=== PATIENT | female | born 1950 | race Caucasian/White ===

== ENCOUNTER 2017-07-19 06:23 | Emergency (ER) | payer MEDICARE, OTHER ==
[~2017-07-19] VITALS: Ht 165.1 cm; Wt 108.9 kg
--- NOTE | ~2017-07-19 | EKG ---
PATIENT: MARIO LIMON UNIT #: [id number] Ventricular Rate: 66 BPM Atrial Rate: 66 BPM P-R Interval: 160 ms QRS Duration: 82 ms Q-T Interval: 420 ms QTC Calculation(Bezet): 440 ms P [place]: 48 degrees Calculated R [place]: -12 degrees Calculated T [place]: -4 degrees Diagnosis Line: Normal sinus rhythm Diagnosis Line: Voltage criteria for left ventricular hypertrophy Diagnosis Line: Abnormal ECG Diagnosis Line: No previous ECGs available Diagnosis Line: Confirmed by JACKSON GARCIA MD ([id number]) on 07/20/2017 Diagnosis Line: 5:23:22 AM INTERPRETING MD: RADHA PARDO
--- NOTE | ~2017-07-19 | EKG ---
PATIENT: MARIO LIMON UNIT #: [id number] Ventricular Rate: 74 BPM Atrial Rate: 74 BPM P-R Interval: 152 ms QRS Duration: 76 ms Q-T Interval: 400 ms QTC Calculation(Bezet): 444 ms P [place]: 58 degrees Calculated R [place]: 14 degrees Calculated T [place]: 24 degrees Diagnosis Line: Normal sinus rhythm Diagnosis Line: Normal ECG Diagnosis Line: When compared with ECG of 19-JUL-2017 08:58, Diagnosis Line: (unconfirmed) Diagnosis Line: Nonspecific T wave abnormality has replaced Diagnosis Line: inverted T waves in Inferior leads Diagnosis Line: Confirmed by JACKSON GARCIA MD ([id number]) on 07/20/2017 Diagnosis Line: 5:25:57 AM INTERPRETING MD: RADHA PARDO
--- NOTE | ~2017-07-19 | CT52 ---
[facility] A Service of [facility] RADIOLOGY TEXT RESULTS PATIENT: MARIO LIMON LOCATION: [facility] : 54 UNIT #: [id number] AGE: [address]: Ange Carnes MD SEX: F ORDER DR: [id number] [facility] [address] [place], [place] [address] [id number] E MR#: [id number] Acc #: [id number] NAME: MARIO LIMON : 1950 SEX: F STUDY DATE/TIME: 07/19/2017 7:35 UNIT: [facility] ROOM: STUDY DESCRIPTION: CT Cervical Spine Wo Cont Attending Physician: Ange Carnes M.D. Ordering Physician: Russ Dos Santos D.O. Primary Care Physician: Nacho Morrow M.D. MEDICAL IMAGING REPORT This report is preliminary unless electronic signature is present EXAM Cervical spine CT no contrast 07/19/2017 PROCEDURE Axial unenhanced cervical spine CT with multiplanar reformats. This CT exam was performed with one or more of the following radiation dose reduction techniques: automatic exposure control, adjustment of mA and/or kV according to patient size, and iterative reconstruction. COMPARISON Prior CT dated 11/27/2012 CLINICAL HISTORY Neck pain after fall this morning. FINDINGS There has been extensive prior cervical fusion. There are degenerative changes but there is no fracture. Alignment is unchanged since the prior study. The paraspinous tissues are unremarkable. IMPRESSION Degenerative and post operative changes, no acute abnormality, no interval change since 11/27/2012. Dictated by... Junior Burrows M.D. THIS IS AN ELECTRONICALLY VERIFIED REPORT Junior Burrows M.D. at 07/23/2017 7:31 AM TEV/to TD: 07/19/2017 14:28 JOB #: [id number] [facility] A Service [facility] RADIOLOGY TEXT RESULTS PATIENT: MARIO LIMON LOCATION: [facility] : 54 UNIT #: [id number] AGE: [address]: Ange Carnes MD SEX: F ORDER DR: MEDICAL IMAGING REPORT Page 1 of 1 COPY
--- NOTE | ~2017-07-19 | CR72 ---
[facility] A Service of [facility] RADIOLOGY TEXT RESULTS PATIENT: MARIO LIMON LOCATION: [facility] : 54 UNIT #: [id number] AGE: [address]: Ange Carnes MD SEX: F ORDER DR: [id number] [facility] [address] [place], [place] [address] [id number] E MR#: [id number] Acc #: [id number] NAME: MARIO LIMON : 1950 SEX: F STUDY DATE/TIME: 07/19/2017 13:18 UNIT: [facility] ROOM: STUDY DESCRIPTION: CR Chest Single View Portable Attending Physician: Ange Carnes M.D. Ordering Physician: Ange Carnes M.D. Primary Care Physician: Nacho Morrow M.D. MEDICAL IMAGING REPORT This report is preliminary unless electronic signature is present EXAM Chest x-ray 07/19. INDICATIONS Shortness of air today. Fall today. Line placement today. TECHNIQUE AP portable chest. COMPARISON Compared with 11/02/14. FINDINGS Right IJ line in the SVC. No pneumothorax. Heart size within normal limits. Lungs are clear. Dictated by... Mt Panchal Jr., M.D. THIS IS AN ELECTRONICALLY VERIFIED REPORT Mt Panchal Jr., M.D. at 07/20/2017 6:37 AM RLK/kanwal TD: 07/19/2017 14:31 JOB #: [id number] MEDICAL IMAGING REPORT Page 1 of 1 COPY
--- NOTE | ~2017-07-19 | CT71 ---
[facility] A Service of [facility] RADIOLOGY TEXT RESULTS PATIENT: MARIO LIMON LOCATION: [facility] : 54 UNIT #: [id number] AGE: [address]: Ange Carnes MD SEX: F ORDER DR: [id number] [id number] [facility] [place], [place] [address] [id number] E MR#: [id number] Acc #: [id number] NAME: MARIO LIMON : 1950 SEX: F STUDY DATE/TIME: 07/19/2017 7:37 UNIT: [facility] ROOM: STUDY DESCRIPTION: CT Head Wo Contrast Attending Physician: Ange Carnes M.D. Ordering Physician: Russ Dos Santos D.O. Primary Care Physician: Nacho Morrow M.D. MEDICAL IMAGING REPORT This report is preliminary unless electronic signature is present EXAM Head CT no contrast DATE OF STUDY: 07/19/2017 PROCEDURE Axial unenhanced head CT. COMPARISON Prior head CT dated 08/11/2014 CLINICAL HISTORY Closed head injury, loss of consciousness with fall, struck head, scalp laceration. TECHNIQUE Axial noncontrast images were obtained from the skull base to the vertex. This CT exam was performed with one or more of the following radiation dose reduction techniques: automatic exposure control, adjustment of mA and/or kV according to patient size, and iterative reconstruction. FINDINGS Ventricular size and configuration are normal. There is no evidence of acute infarct or hemorrhage. There are no extraaxial fluid collections. No mass lesion or mass effect is seen. There are no skull fractures. IMPRESSION Normal noncontrast head CT. Dictated by... [facility] A Service [facility] RADIOLOGY TEXT RESULTS PATIENT: MARIO LIMON LOCATION: [facility] : 54 UNIT #: [id number] AGE: [address]: Ange Carnes MD SEX: F ORDER DR: Junior Burrows M.D. THIS IS AN ELECTRONICALLY VERIFIED REPORT Junior Burrows M.D. at 07/23/2017 7:31 AM DORETHA/natacha TD: 07/19/2017 14:28 JOB #: [id number] MEDICAL IMAGING REPORT Page 1 of 1 COPY
--- NOTE | ~2017-07-19 | CR181 ---
[facility] A Service of [facility] RADIOLOGY TEXT RESULTS PATIENT: MARIO LIMON LOCATION: [facility] : 54 UNIT #: [id number] AGE: [address]: Ange Carnes MD SEX: F ORDER DR: [id number] [facility] [address] [place], [place] [address] [id number] E MR#: [id number] Acc #: [id number] NAME: MARIO LIMON : 1950 SEX: F STUDY DATE/TIME: 07/19/2017 7:40 UNIT: [facility] ROOM: STUDY DESCRIPTION: CR Lumbar Spine 2 or 3 Views Attending Physician: Ange Carnes M.D. Ordering Physician: [facility] Primary Care Physician: Nacho Morrow M.D. MEDICAL IMAGING REPORT This report is preliminary unless electronic signature is present EXAM Lumbar spine 07/19 at 07:40 INDICATIONS Low back pain after fall this morning. FINDINGS Three views of the lumbar spine are compared with 11/27/2012. Again seen are changes of pedicle screw fusion from L4-S1. Hardware appears unchanged. Alignment is unchanged. There are no fractures. IMPRESSION Lumbar fusion. No acute fracture or subluxation is seen. Exam is stable from prior. Dictated by... Mt Panchal Jr., M.D. THIS IS AN ELECTRONICALLY VERIFIED REPORT Mt Panchal Jr., M.D. at 07/19/2017 4:39 PM PEGGY/natacha TD: 07/19/2017 14:22 JOB #: [id number] MEDICAL IMAGING REPORT Page 1 of 1 COPY
[2017-07-19 10:13] LABS: URINE SOURCE CLEAN CATCH
[2017-07-19 10:24] LABS: URINE APPEARANCE CLEAR; URINE BILIRUBIN NEG (NEG); URINE BLOOD NEG (NEG); URINE COLOR YELLOW; URINE GLUCOSE NEG (NEG); URINE KETONE NEG (NEG); URINE LEUKOCYTE ESTERASE TRACE (NEG); URINE NITRATE NEG (NEG); URINE PROTEIN NEG (NEG); URINE SPECIFIC GRAVITY 1.013 (1.003-1.035)
[2017-07-19 10:27] LABS: URBCS1 AUWI 0-2 /[HPF] (0-2); URINE BACTERIA AUWI NEG (NEGATIVE); URINE SQUAMOUS EPITHELIAL CELL NONE SEEN /[HPF]
[2017-07-19 10:30] LABS: CULTURE INDICATED? NO
[2017-07-19 10:58] LABS: BASOPHIL% 0.6 % (0-2.5); DIFF IND NO; EOSINOPHIL# 0.3 X10e3 (0-0.7); EOSINOPHIL% 3.7 % (0.0-7.0); HEMATOCRIT 34.7 % (35.0-45.0); HEMOGLOBIN 11.7 gm/dL (12.0-16.0); LYMPHOCYTE% 12.7 % (17.0-45.0); MEAN CORPUSCULAR HEMOGLOBIN 28.6 PG (28-34); MEAN CORPUSCULAR HGB CONC 33.6 g/dL (30-36); MEAN PLATELET VOLUME 7.6 FL (6.5-11.5); MONOCYTE# 0.9 X10e3 (0-1.0); MONOCYTE% 11.1 % (3.0-12.0); NEUTROPHIL# 5.7 X10e3 (1.5-7.1); NEUTROPHIL% 71.9 % (40-75); PLATELET COUNT 196 X10e3 (140-420); RED BLOOD COUNT 4.08 X10e (3.90-5.30); RED CELL DISTRIBUTION WIDTH 13.6 % (11.0-15.5); WHITE BLOOD COUNT 7.9 X10e3 (4.0-10.5)
[2017-07-19 11:09] LABS: POC - CKMB 1.3 ng/mL (0.0-7.9); POC - TROPONIN <0.05 ng/mL (<=0.05)
[2017-07-19 11:35] LABS: ALBUMIN SERUM 3.3 g/dL (3.5-5.0); BILIRUBIN, DIRECT 0.2 mg/dL (0.0-0.2); BILIRUBIN,TOTAL 1.2 mg/dL (0.2-2.0); BUN/CREATININE RATIO 12.14; CALCIUM SERUM 9.2 mg/dL (8.4-10.2); CREATININE SERUM 1.4 mg/dL (0.6-1.4); GLOM FILT RATE Estimated 39.3 mL/min (>60); POTASSIUM 4.7 mmol/L (3.5-5.1); PROTEIN TOTAL SERUM 6.5 g/dL (6.0-8.3)
== END 2017-07-19 16:54 | disposition short-term general hospital (02) ==
LOC: CED 06:23
PROVIDERS: Emergency Medicine; Nurse Practitioner Family
DX: S06.0X9A Concussion with loss of consciousness of unspecified duration, initial encounter (principal); L03.114 Cellulitis of left upper limb; L03.113 Cellulitis of right upper limb; I10 Essential (primary) hypertension; Z88.5 Allergy status to narcotic agent; Z88.1 Allergy status to other antibiotic agents; W19.XXXA Unspecified fall, initial encounter; Y92.009 Unspecified place in unspecified non-institutional (private) residence as the place of occurrence of the external cause
CPT/HCPCS: 36415; 70450; 71010; 72100; 72125; 80048; 80076; 81003; 82553; 82947; 83605; 84484; 85025; 87040; 93005; 99285; J2405; J3370